=== PATIENT | female | born 1975 | race Caucasian/White ===

== ENCOUNTER 2020-09-09 09:19 | Day surgery (SDC) | payer BC, SELFPAY ==
[2020-09-05 11:14] VITALS: BMI 26.7
[2020-09-09 09:49] VITALS: BP 141/91; PULSE 93; RESP 16; TEMP 36.4; O2SAT 98
--- NOTE | 2020-09-09 10:41 | P.CONAN_ITS ---
Documented by User: Vivien Pierce 09/09/20 10:44 PMF Past Medical History Medical History History of esophageal stricture History of ovarian cyst Hx of constipation Hx of gastroesophageal reflux (GERD) Hx of hiatal hernia Hx of renal calculi Stage 3 chronic kidney disease Surgical History Surgical History History of ankle surgery History of bilateral tubal ligation History of esophagogastroduodenoscopy (EGD) History of left nephrectomy History of repair of ACL Hx of section Hx of hysterectomy Social History Social History Patient Tobacco Use Status: Never used Tobacco Second Hand Smoke Exposure: No Are you DNR?: No Advance Directives: No Advance Directives Information Provided: Yes Advance Directives on File: No Meds Allergies Allergy/AdvReac Type Severity Reaction Status Date / Time amoxicillin [AMOXICILLIN] Allergy Intermediate HIVES Verified 09/09/20 09:47 ampicillin [AMPICILLIN] Allergy Intermediate HIVES Verified 09/09/20 09:47 Active Medications: Current Medications Generic Name Dose Route Start Last Admin Trade Name Freq PRN Reason Stop Dose Admin Sodium Biphosphate/Sodium Phosphate 133 ml 09/09/20 09:34 Sodium Phosphate,[place]-Dibasic 133 Ml Enema AK ONCE PRN Poor Colonoscopy Prep Results Home Medications Medication Instructions Recorded Confirmed Last Taken Type lisinopril 5 mg PO DAILY 09/05/20 09/05/20 Unknown History omeprazole 20 mg PO DAILY 09/05/20 09/05/20 Unknown History potassium citrate 1,080 mg PO BID 09/05/20 09/05/20 Unknown History Exam Exam Date and Time: September 09, 2020 1041 Height,Weight and Vital Signs: Height 5 ft 3 in Weight 68.492 kg Last Vital Signs Temp 97.5 F 09/09/20 09:49 Pulse 93 09/09/20 09:49 Resp 16 09/09/20 09:49 BP 141/91 H 09/09/20 09:49 Pulse Ox 98 09/09/20 09:49 Documented by User: Jas Moreno 09/09/20 11:34 PMFSH Past Medical History Medical History History of esophageal stricture History of ovarian cyst Hx of constipation Hx of gastroesophageal reflux (GERD) Hx of hiatal hernia Hx of renal calculi Stage 3 chronic kidney disease Surgical History Surgical History History of ankle surgery History of bilateral tubal ligation History of esophagogastroduodenoscopy (EGD) History of left nephrectomy History of repair of ACL Hx of section Hx of hysterectomy Social History Social History Patient Tobacco Use Status: Never used Tobacco Second Hand Smoke Exposure: No Are you DNR?: No Advance Directives: No Advance Directives Information Provided: Yes Advance Directives on File: No Meds Allergies Allergy/AdvReac Type Severity Reaction Status Date / Time amoxicillin [AMOXICILLIN] Allergy Intermediate HIVES Verified 09/09/20 09:47 ampicillin [AMPICILLIN] Allergy Intermediate HIVES Verified 09/09/20 09:47 Home Medications Medication Instructions Recorded Confirmed Last Taken Type lisinopril 5 mg PO DAILY 09/05/20 09/05/20 Unknown History omeprazole 20 mg PO DAILY 09/05/20 09/05/20 Unknown History potassium citrate 1,080 mg PO BID 09/05/20 09/05/20 Unknown History Exam Airway Mallampati Class: II TM Dist: >3cm Neck ROM: Full Loose/Missing/Broken Teeth: No Heart: [id number] Lungs: cta b/l Assessment and Plan Assessment Anesthesia Assessment: Anesthesia Plan Discussed, PAT Visit and Chart Reviewed Final Anesthetic Review NPO: Yes ASA Class: II Final Preanesthetic Review: No Changes in Pt Med Stat, Meds/Allgs Chart Reviewed , Consent Obtained/Reviewed and Anes Risks/Benef Reviewed Patient Risk: Low Procedure Risk: Low Assessment/Block/Sedation in SS: Assess/Block/Sedation-SS Anesthetic Plan Anesthetic Plan: MAC: and Agree w/ Assess. and Plan Disposition: Standard PACU
--- NOTE | 2020-09-09 12:00 | P.BOP_ITS ---
Brief Operative Note Date of Service: 09/09/20 Pre-op diagnosis: Screening Post-op diagnosis: other (Minimal internal hemorrhoids) Procedure: Colonoscopy to the cecum and TI Surgeon: Placido Rodriguez Anesthesia: MAC Was an Orientation And Mobility Instructor used for this Procedure?: No Estimated blood loss (mL): 0 Pathology: none sent Condition: stable Disposition: PACU
[2020-09-09 12:03] VITALS: BP 89/38; PULSE 78; RESP 16; TEMP 36.2; O2SAT 98
[2020-09-09 12:17] VITALS: BP 118/76; PULSE 82; RESP 16; TEMP 36.3; O2SAT 98
--- NOTE | 2020-09-09 12:44 | OP_ITS ---
SURGEON: Placido Rodriguez MD INDICATIONS: The patient presents for evaluation of family history of colorectal polyps, colorectal cancer screening, and question of a rectal polyp. Full consent has been obtained from her for this, including risks of bleeding and perforation. PREOPERATIVE DIAGNOSIS: POSTOPERATIVE DIAGNOSIS: PROCEDURE PERFORMED: Colonoscopy to cecum and terminal ileum. ESTIMATED BLOOD LOSS: COMPLICATIONS: ANESTHESIA: Monitored anesthesia care. ASSISTANTS: SPECIMENS: PREOPERATIVE DIAGNOSES: Colorectal cancer screening and family history of colorectal polyps. POSTOPERATIVE DIAGNOSES: Colorectal cancer screening and family history of colorectal polyps, normal colonoscopy other than very minimal internal hemorrhoidal tissue. DESCRIPTION OF PROCEDURE: The patient was placed in the left lateral decubitus position. The digital rectal exam revealed no abnormalities. There was no visible hemorrhoidal tissue. The Olympus video pediatric colonoscope was entered into the rectum and advanced easily to the cecum. Once in the cecum, I did identify normal-appearing cecal pouch with appendiceal orifice and a normal-appearing ileocecal valve. The terminal ileum was cannulated and appeared normal. The scope was withdrawn back in the colon. The entire cecum and ileocecal valve appeared normal. The scope was slowly withdrawn assessing all mucosal surfaces carefully. Preparation was excellent. I did not visualize any sign of polyps, colitis, nor angiodysplasia. In the rectum, scope was retroflexed visualizing some minimal hemorrhoidal tissue, but no other abnormalities. The rectal mucosa appeared normal. The scope was straightened out and withdrawn from the patient. She tolerated the procedure well and was returned to recovery area in stable condition. IMPRESSION: Minimal internal hemorrhoids, otherwise normal colonoscopy. PLAN: Given her family history, I would recommend a followup colonoscopy in 5 years for further screening. She will otherwise see me on a p.r.n. basis. She was advised to continue her omeprazole on a long-term basis in regard to the previous history of esophageal stricture. MD REYNA Cabrera/ROBERT / [id number]
== END 2020-09-09 12:48 | disposition home or self-care (01) ==
PROVIDERS: PCP Internal Medicine; Visit Provider Internal Medicine
PROC: 0DJD8ZZ Inspection of Lower Intestinal Tract, Via Natural or Artificial Opening Endoscopic (ICD-10-PCS; CPT 45378; principal; 2020-09-09 10:30)
DX: Z12.11 Encounter for screening for malignant neoplasm of colon (principal); Z83.71 Family history of colonic polyps; K64.8 Other hemorrhoids; K59.00 Constipation, unspecified; K21.9 Gastro-esophageal reflux disease without esophagitis; N18.30 Chronic kidney disease, stage 3 unspecified; Z90.5 Acquired absence of kidney; Z79.899 Other long term (current) drug therapy; Z88.0 Allergy status to penicillin
CPT/HCPCS: 45378